=== PATIENT | female | born 2000 | race Caucasian/White ===

== ENCOUNTER 2021-02-11 11:03 | Emergency (ER) | payer BC, SELFPAY ==
--- NOTE | ~2021-02-11 | XR_ITS ---
EXAMINATION: XR chest 1V portable DATE: 02/11/2021 13:28 INDICATION: Cough and sore throat TECHNIQUE: frontal view of the chest was obtained. COMPARISON: None FINDINGS: The lungs are clear with no focal airspace opacities, pulmonary edema, pleural effusion or pneumothor ax. The cardiomediastinal silhouette is normal. Visualized bones and soft tissues are unremarkable. IMPRESSION: 1. Normal chest radiograph. Reviewed, dictated and finalized at location [facility]. IMPRESSION: 1. Normal chest radiograph.
[2021-02-11 11:21] VITALS: BP 141/95; PULSE 117; RESP 20; TEMP 36.8; O2SAT 97
--- NOTE | 2021-02-11 14:01 | ED.GENADULT ---
HPI - General Adult General Chief complaint: Upper Respiratory Infection Stated complaint: WANTS COVID TEST Time Seen by Provider: 02/11/21 12:40 Source: patient and RN notes reviewed Mode of arrival: ambulatory Limitations: no limitations History of Present Illness HPI narrative: Patient is a 21-year-old female who presents to emergency department for evaluation of nonproductive cough body aches fevers began 2 days ago with congestion rhinorrhea sore throat which have improved denies sick contacts has not take anything for symptoms presents in no distress denies vomiting diarrhea has not been vaccinated for Covid denies vomiting or diarrhea Related Data Allergies Allergy/AdvReac Type Severity Reaction Status Date / Time No Known Allergies Allergy Verified 02/11/21 13:00 Review of Systems Review of Systems: All systems reviewed & are unremarkable except as noted in HPI and below PMFSH Past Medical History Medical History Abnormal fasting glucose Acute bronchitis Amenorrhea COVID-19 (08/01/20) Dermatitis Elevated testosterone level in female Female hirsutism Irregular menstrual cycle Menorrhagia Mixed hyperlipidemia Otitis externa Otitis media PCOS (polycystic ovarian syndrome) Family History Family History (Updated 03/31/19 @ 13:48 by DOCTOR UNKNOWN) Grandparent Hypertension Cerebrovascular accident Carcinoma of colon Family history of type 2 diabetes mellitus Diabetes mellitus, Onset Age: 80 Family history of chronic obstructive pulmonary disease Family history of Alzheimer's disease, Onset Age: 74 Family history of congestive heart failure Father Family history of kidney disease Other Family history of malignant neoplasm of breast Social History Social History Smoking status: Never smoker Alcohol intake: never Gender identity (if verbalized by the patient): Female Exam Narrative: Exam Narrative: GENERAL: Well-appearing, obese, and in no acute distress. HEAD: Normocephalic, atraumatic. EYES: PERRLA and EOMI. ENT: Nares clear, no rhinorrhea or epistaxis. Mucous membranes moist. CHEST: Clear to auscultation. No respiratory distress. No wheezes rales or rhonchi HEART: Regular rate and rhythm. No murmur heard. EXTREMITIES: Normal range of motion. No edema. SKIN: Warm, dry, no rash. NEURO: No focal deficits. Alert and oriented x3. PSYCH: Normal mood and affect. Course Course Emergency Course: Patient in the room no distress aware of case findings treatment plan and diagnosis has no swab for Covid will follow with primary care to obtain her results afebrile nontoxic-appearing no pneumonia seen on exam no hypoxemia Vital Signs Vital signs: Vital Signs Temperature 98.2 F 02/11/21 11:21 Pulse Rate 117 H 02/11/21 11:21 Respiratory Rate 20 02/11/21 11:21 Blood Pressure 141/95 H 02/11/21 11:21 Pulse Oximetry 97 02/11/21 11:21 Temperature 98.2 F 02/11/21 11:21 Pulse Rate 117 H 02/11/21 11:21 Respiratory Rate 20 02/11/21 11:21 Blood Pressure 141/95 H 02/11/21 11:21 Pulse Oximetry 97 02/11/21 11:21 Medical Decision Making MDM Narrative Medical decision making narrative: Patient with upper respiratory infection for the last 2 days will be discharged home with outpatient follow-up provided with reasons to return felt appropriate for outpatient reevaluation Vital Signs Vital Signs: Vital Signs Temperature 98.2 F 02/11/21 11:21 Pulse Rate 117 H 02/11/21 11:21 Respiratory Rate 20 02/11/21 11:21 Blood Pressure 141/95 H 02/11/21 11:21 Pulse Oximetry 97 02/11/21 11:21 Temperature 98.2 F 02/11/21 11:21 Pulse Rate 117 H 02/11/21 11:21 Respiratory Rate 20 02/11/21 11:21 Blood Pressure 141/95 H 02/11/21 11:21 Pulse Oximetry 97 02/11/21 11:21 Lab Data Labs: Lab Results 02/11/21 Range/Units 13:27 SA
[2021-02-11 14:22] VITALS: BP 132/86; PULSE 94; RESP 18; O2SAT 99
[2021-02-13 13:08] LABS: SARS-CoV-2 RNA PCR Negative
== END 2021-02-11 14:24 | disposition home or self-care (01) ==
PROVIDERS: Emergency Medicine Emergency Medical Services; Emergency Provider Emergency Medicine; PCP Family Medicine
DX: J06.9 Acute upper respiratory infection, unspecified (principal); Z86.16 Personal history of COVID-19; E78.2 Mixed hyperlipidemia; E28.2 Polycystic ovarian syndrome
CPT/HCPCS: 71045; 99283; C9803; U0003; U0005

== ENCOUNTER 2022-05-14 12:56 | Outpatient (RCR) | payer BC, SELFPAY | END 2022-07-09 14:35 | disposition home or self-care (01) | LOC: ANHDMC 12:56 | PROVIDERS: PCP Family Medicine; Visit Provider Family Medicine | DX: E11.65 Type 2 diabetes mellitus with hyperglycemia (principal); Z71.89 Other specified counseling | CPT/HCPCS: G0108 ==

== ENCOUNTER 2023-05-22 10:21 | Emergency (ER) | payer OTHER, SELFPAY ==
[2023-05-22 10:49] VITALS: BP 172/93; PULSE 112; RESP 20; TEMP 36.7; O2SAT 100
[2023-05-22 12:20] LABS: Appearance Urine Clear (Clear); Bilirubin Urine Negative (Negative); Blood Urine Negative (Negative); Color Urine Dark Yellow (Yellow); Glucose Urine UA Negative (Negative); Ketones Urine Trace mg/dL (Negative); Leukocyte Esterase Ur Negative LEU/UL (Negative); Nitrate Urine Negative (Negative); Protein Urine Negative (Negative); Specific Grav Ur 1.024 (1.001-1.035); Urobilinogen Urine 0.2 mg/dL (<2.0); pH Urine 5.5 (5.0-9.0)
[2023-05-22 12:25] LABS: Add Urine Microscopic? NO
--- NOTE | 2023-05-22 12:56 | ED.FEMALEGU ---
HPI - Female Genitourinary General Chief complaint: Urogenital-Female Stated complaint: back pain Time Seen by Provider: 05/22/23 12:15 History of Present Illness HPI Narrative: Patient is a 23-year-old female presenting with back pain. Patient states that she woke up from a nap yesterday with lower midline back pain. States that she took some Aleve with minimal relief. States that it hurts especially to walk. She took an at-home urinalysis which was positive for a UTI. She denies dysuria, increased urinary frequency, hematuria, fevers or chills. Denies abdominal pain, vomiting. Reports intermittent chronic diarrhea. Denies numbness or weakness, saddle anesthesia, bladder or bowel incontinence. Denies recent injuries. 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 COVID-19 (08/01/20) Dermatitis Elevated testosterone level in female Female hirsutism Folic acid deficiency (03/11/22) level low at 4.3 on 03/11/2022. Irregular menstrual cycle Menorrhagia Mixed hyperlipidemia Total cholesterol 228, triglycerides 304, HDL 42 LDL 143 on 03/11/2022. Morbid obesity with BMI of 40.0-44.9, adult Morbid obesity with BMI of 45.0-49.9, adult Otitis externa Otitis media PCOS (polycystic ovarian syndrome) Screening for diabetic retinopathy (08/28/22) no diabetic retinopathy or macular degeneration on dilated eye exam 08/28/2022. UTI (urinary tract infection) Vitamin B12 deficiency (03/11/22) level low at 364 with goal greater than 400 on 03/11/2022. Family History Family History Grandparent Hypertension Cerebrovascular accident Carcinoma of colon Family history of type 2 diabetes mellitus Diabetes mellitus, Onset Age: 80 Family history of chronic obstructive pulmonary disease Family history of Alzheimer's disease, Onset Age: 74 Family history of congestive heart failure Father Family history of kidney disease Other Family history of malignant neoplasm of breast Social History Social History Smoking status: Never smoker Alcohol intake: never Substance use: never Substance use type: does not use Lack of Transportation: No Lack of Food: Never True Current Housing: I Have Housing Concerned About Future Housing: No Difficulty Paying Gas/Electric Bills: No Difficulty Paying for Meds: No Currently Unemployed: No Education: Associate Degree Difficulty w/ Childcare or Family Care: No Gender identity (if verbalized by the patient): Female Exam Narrative: GENERAL: Well-appearing, well-nourished, and in no acute distress. HEAD: Normocephalic, atraumatic. EYES: PERRLA and EOMI. ENT: Nares clear, no rhinorrhea or epistaxis. Mucous membranes moist. NECK: Supple. CHEST: No respiratory distress. HEART: Regular rate and rhythm ABDOMEN: nondistended BACK: +mild midline tenderness over lower lumbar spine EXTREMITIES: Normal range of motion. No edema. SKIN: Warm, dry, no rash. NEURO: No focal deficits. Alert and oriented x3. PSYCH: Normal mood and affect. Course Vital Signs Vital signs: Vital S
== END 2023-05-22 13:18 | disposition home or self-care (01) ==
PROVIDERS: Student in an Organized Health Care Education/Training Program; Emergency Provider Emergency Medicine; PCP Family Medicine
DX: M54.50 Low back pain, unspecified (principal); E11.9 Type 2 diabetes mellitus without complications; E53.8 Deficiency of other specified B group vitamins; E78.2 Mixed hyperlipidemia; E28.2 Polycystic ovarian syndrome; E66.01 Morbid (severe) obesity due to excess calories; Z68.41 Body mass index [BMI] 40.0-44.9, adult; F90.9 Attention-deficit hyperactivity disorder, unspecified type; Z86.16 Personal history of COVID-19; Z87.440 Personal history of urinary (tract) infections; Z79.85 Long-term (current) use of injectable non-insulin antidiabetic drugs; Z79.84 Long term (current) use of oral hypoglycemic drugs
CPT/HCPCS: 81003; 81025; 99283

== ENCOUNTER → 2023-05-23 10:36 | Outpatient (CLI) | payer OTHER, SELFPAY ==
--- NOTE | ~2023-05-23 | XR_ITS ---
Lumbosacral Spine: AP, oblique, and lateral views Clinical History: Pain Findings: The normal lordotic curve is maintained. The vertebral bodies and posterior elements are i ntact. The intervertebral disc spaces are preserved. The sacroiliac joints are normally outlined. Impression: No significant abnormality. Reviewed, dictated and finalized at [facility]. Impression: No significant abnormality.
== END ==
PROVIDERS: PCP Family Medicine; Visit Provider Nurse Practitioner Family
DX: M54.50 Low back pain, unspecified (principal)
CPT/HCPCS: 72110

== ENCOUNTER 2024-04-13 08:11 | Emergency (ER) | payer OTHER, SELFPAY ==
--- NOTE | 2024-04-13 08:22 | ED.URI ---
HPI - URI/Sore Throat General Chief Complaint: Upper Respiratory Infection Stated Complaint: Sinus Time Seen by Provider: 04/13/24 08:22 Source: patient, RN notes reviewed and old records reviewed Mode of arrival: ambulatory Limitations: no limitations History of Present Illness HPI Narrative: Patient presents with complaints of sinus pain and pressure, postnasal drainage, sore throat. She was treated with cefdinir by her primary care provider yesterday, was only able to take 1 dose yesterday, has not had any yet this morning. She presents because she reports her throat is much more sore today than it was yesterday. She cannot breathe through her nose due to sinus pain and congestion, report that she is able to swallow, but it hurts so incredibly bad to do so that she does not want to. She is able to manage own secretions. No shortness of breath or stridor noted Related Data Allergies Allergy/AdvReac Type Severity Reaction Status Date / Time No Known Allergies Allergy Verified 04/13/24 08:19 Review of Systems Review of Systems: All systems reviewed & are unremarkable except as noted in HPI and below Constitutional: Constitutional: Reports no additional constitutional complaints ENT: Reports system reviewed and no additional complaints, except as documented, Reports facial pain, Reports nasal discharge, Reports post nasal drip, Reports sinus pain, Reports sinus pressure and Reports sore throat Cardiovascular: Cardiovascular: Reports no additional cardiovascular complaints Respiratory: Respiratory: Reports no additional respiratory complaints Gastrointestinal: Gastrointestinal: Reports no additional gastrointestinal complaints Neurologic: Reports headache(s) PMFSH Past Medical History Medical History Abnormal fasting glucose Acute bronchitis Acute midline low back pain without sciatica Acute non-recurrent maxillary sinusitis ADHD (attention deficit hyperactivity disorder), inattentive type Alopecia (~12/2021) 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 Glucose 94 with hemoglobin A1c 5.7 With urine microalbumin ratio of 6 on 08/25/2023. COVID-19 (08/01/20) COVID-19 (~07/30/23) another episode of COVID Dermatitis Elevated testosterone level in female Female hirsutism Morning cortisol normal at 7.5 on 08/25/2023. Folic acid deficiency (03/11/22) level low at 4.3 on 03/11/2022. Level low at 4.5 on 08/25/2023. Irregular menstrual cycle Low back pain (~04/2023) X-ray of the lumbar spine was normal on 05/23/2023. Menorrhagia Mixed hyperlipidemia Total cholesterol 228, triglycerides 304, HDL 42 LDL 143 on 03/11/2022. Morbid obesity with BMI of 40.0-44.9, adult Morbid obesity with BMI of 45.0-49.9, adult Otitis externa Otitis media PCOS (polycystic ovarian syndrome) Screening for diabetic retinopathy (08/28/22) no diabetic retinopathy or macular degeneration on dilated eye exam 08/28/2022. UTI (urinary tract infection) Vitamin B12 deficiency (03/11/22) level low at 364 with goal greater than 400 on 03/11/2022. Level low at 396 on 08/25/2023. Family History Family History Grandparent Hypertension Cerebrovascular accident Carcinoma of colon Family history of type 2 diabetes mellitus Diabetes mellitus, Onset Age: 80 Family history of chronic obstructive pulmonary disease Family history of Alzheimer's disease, Onset Age: 74 Family history of congestive heart failure Father Family history of kidney disease Other Family history of malignant neoplasm of breast Social History Social History Smoking status: Never sm
[2024-04-13 08:23] VITALS: BP 135/81; PULSE 118; RESP 16; TEMP 37.6; O2SAT 98
== END 2024-04-13 08:44 | disposition home or self-care (01) ==
PROVIDERS: Emergency Provider Nurse Practitioner Family; PCP Family Medicine
DX: J01.00 Acute maxillary sinusitis, unspecified (principal); L65.9 Nonscarring hair loss, unspecified; E11.9 Type 2 diabetes mellitus without complications; E53.8 Deficiency of other specified B group vitamins; E78.2 Mixed hyperlipidemia; E66.01 Morbid (severe) obesity due to excess calories; Z68.41 Body mass index [BMI] 40.0-44.9, adult; E28.2 Polycystic ovarian syndrome; Z86.16 Personal history of COVID-19
CPT/HCPCS: 99213; G0463